=== PATIENT | male | born 1960 | race African-American/Black ===

== ENCOUNTER 2016-04-03 09:34 | Emergency (ER) | payer OTHER ==
--- NOTE | 2016-04-03 10:44 | ED ---
Skin Complaint - HPI Summary HPI Summary: Patient presents to ER with a CC of left lower leg skin lesion measuring 1.5cm over tibia. Patient has a history of diabetes and diabetic neuropathy. Lesion has been present for almost 2 weeks and began as a pus-filled abscess over tibia. Denied warmth, redness or other color changes. Abscess erupted several days ago and now lesion is flat, eroded with a white surface. Denies fever. Full ROM. Other "rash" over L anterior shoulder present intermittently for several months. topical steroids cause worsening flare of the rash. - History of Current Complaint Chief Complaint: EDGeneral Time Seen by Provider: 04/03/16 09:51 Stated Complaint: POSS SPIDER BITE Hx Obtained From: Patient Onset/Duration: Started Days Ago Skin Exposure Onset/Duration: Days Ago Timing: Constant Onset Severity: Moderate Current Severity: Moderate Pain Intensity: 5 Pain Scale Used: 0-10 Numeric Skin Location: Discrete - L anterior tibia measuring 1.5cm, Other: - right anterior shoulder-- confluent raised papules Aggravating Symptom(s): Nothing Alleviating Symptom(s): Nothing Associated Signs & Symptoms: Tenderness - erythema and warmth surrounding lesion over L anterior tibua Related History: Diabetes, PVD, Other: - no known trauma - Allergy/Home Medications Allergies/Adverse Reactions: Allergies Allergy/AdvReac Type Severity Reaction Status Date / Time Metformin and Related Allergy Intermediate GI Upset Verified 08/14/15 17:57 PMH/Surg Hx/FS Hx/Imm Hx Previously Healthy: Yes Endocrine/Hematology History: Reports: Hx Diabetes - TYPE 1 Cardiovascular History: Reports: Hx Coronary Artery Disease - CARDIAC STENTS X 3 , PLACED IN 2012, Hx Hypertension, Hx Peripheral Vascular Disease Denies: Hx Pacemaker/ICD Respiratory History: Reports: Hx Asthma GI History: Reports: Hx Irritable Bowel History: Reports: Hx Kidney Stones - A CHILD Denies: Hx Renal Disease Musculoskeletal History: Reports: Other Musculoskeletal History - LEFT SHOULDER SUPERIOR GLENOID LABRUM LESIONS Sensory History: Reports: Hx Cataracts - BILAT CATARACT EXTRACTION 2011, Hx Contacts or Glasses - GLASSES, Hx Glaucoma Denies: Hx Hearing Aid Opthamlomology History: Reports: Hx Cataracts - BILAT CATARACT EXTRACTION 2011, Hx Contacts or Glasses - GLASSES, Hx Glaucoma Neurological History: Reports: 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 2012 BILATERAL CATARACT EXTRACTION & GLAUCOMA- [facility] Hx Anesthesia Reactions: No Infectious Disease History: No Infectious Disease History: Denies: Traveled Outside the [place] in Last 30 Days - Social History Occupation: Employed Full-time Lives: With Family Alcohol Use: None Substance Use Type: Reports: None Smoking Status (MU): Heavy Every Day Tobacco Smoker Type: Cigarettes Amount Used/How Often: 1 PPD FOR 25 YRS Length of Time of Smoking/Using Tobacco: 25 YRS Have You Smoked in the Last Year: Yes Review of Systems Constitutional: Negative Eyes: Negative Cardiovascular: Negative Respiratory: Negative Musculoskeletal: Negative Positive: Other - small confluence of raised papules measuring 4X4 cm over L anterior shoulder; 1.5cm flat eroded lesion over anterior tibia Neurological: Negative Psychological: Normal All Other Systems Reviewed And Are Negative: Yes Physical Exam Triage Information Reviewed: Yes Vital Signs On Initial Exam: Initial Vitals Temp Pulse Resp BP Pulse Ox 98.1 F 70 16 172/93 97 04/03/16 09:36 04/03/16 09:36 04/03/16 09:36 04/03/16 09:36 04/03/16 09:36 Completion Of Physical Exam Limited Due To: Dementia Appearance: Positive: Well-Appearing, No Pain Distress Skin: Positive: Warm, Other - Dermopathy over lower extremities bilaterally covering the anterior tibia. small confluence of raised papules measuring 4X4 cm over L anterior shoulder; 1.5cm flat eroded lesion over anterior tibia Eyes: Positive: Normal, EOMI, ELENI ENT: Positive: Normal ENT inspection Neck: Positive: Supple, Nontender, No Lymphadenopathy Respiratory/Lung Sounds: Positive: Clear to Auscultation, Decreased Breath Sounds Cardiovascular: Positive: Normal Musculoskeletal: Positive: Normal Neurological: Positive: Normal, Sensory/Motor Intact Psychiatric: Positive: Normal Diagnostics - Vital Signs Vital Signs Temp Pulse Resp BP Pulse Ox 04/03/16 09:36 98.1 F 70 16 172/93 97 - Laboratory Lab Statement: Any lab studies that have been ordered have been reviewed, and results considered in the medical decision making process. Course/Dx - Course Course Of Treatment: small confluence of raised papules measuring 4X4 over L anterior shoulder resembling fungal infection. Unable to confirm. No open wound to culture. Will encourage selsun blue shampoo over area and clotrimazole cream. 1.5cm lesion over L anterior tibia with warmth, erythema and pain 2cm surrounding lesion. No fever. MRSA cx sent. wound cx sent and will await results. MRSA negative known. Rx for Keflex 4 times daily for 14 days d/t diabetic ulcer and cellulitic components. Assessment/Plan: Follow up with Designer if symptoms persist. - Differential Diagnoses - Skin Complaint Differential Diagnoses: Cellulitis, Contact Dermatitis, Drug Rash, Impetigo - Diagnoses Provider Diagnoses: Cellulitis and abscess of leg, Diabetic ulcer of left lower leg Discharge - Discharge Plan Condition: Stable Disposition: HOME Prescriptions: Clotrimazole 1% CREAM* [Clotrimazole 1%*] 1 applic TOPICAL BID #1 tube Patient Education Materials: Abscess (ED), Cellulitis (ED) Referrals: Radha Ambrose MD [Primary Care Provider] - Additional Instructions: Shoulder rash: Selsun jermaine shampoo over area. Leave on for at least 5 minutes, then rinse. Try this over the wound daily. Apply clotrimazole 1% daily to wound over shoulder. Follow up with roundsman if improvement or worsening rash over the area is seen. Leg wound: Keflex send to pharmacy. 500mg 4 times daily Images - Images Full Body (No Head): 1 - 1.5cm flat eroded lesion over anterior tibia 2 - small confluence of raised papules measuring 4X4 cm over L anterior shoulder
[2016-04-03] MEDS ORDERED: Cephalexin CAP* 500 MG PO ONE (11:41)
[2016-04-03 13:00] VITALS: BP 134/78
== END 2016-04-03 12:51 | disposition home or self-care (01) ==
LOC: ED 09:34
DX: L03.116 Cellulitis of left lower limb (principal); R21 Rash and other nonspecific skin eruption; F17.210 Nicotine dependence, cigarettes, uncomplicated; E11.622 Type 2 diabetes mellitus with other skin ulcer
CPT/HCPCS: 87070; 87205; 87640; 87641; 99282; A9270-GY

== ENCOUNTER 2017-08-02 12:58 | Emergency (ER) | payer OTHER ==
[2017-08-02 13:49] LABS: ABS Basophils 0.1 10^3/ul (0-0.2); ABS Eosinophils 0.1 10^3/ul (0-0.6); ABS Lymphocytes 1.8 10^3/ul (1.0-4.8); ABS Monocytes 0.2 10^3/ul (0-0.8); ABS Neutrophils 2.6 10^3/ul (1.5-7.7); ABS Nucleated RBC 0 10^3/ul; Eosinophil % 1.7 % (0-6); Hematocrit 46 % (42-52); Hemoglobin 15.2 g/dl (14.0-18.0); Lymphocyte % 37.5 % (25-47); Mean Corpuscular HGB Conc 33 g/dl (31-36); Mean Corpuscular Hemoglobin 29 pg (27-31); Mean Corpuscular Volume 88 fL (80-94); Mean Platelet Volume 9.4 um3 (7.4-10.4); Nucleated Red Blood Cells % 0.2; Platelet Count 165 10^3/ul (150-450); Red Cell Distribution Width 14 % (10.5-15); White Blood Count 4.7 10^3/ul (3.5-10.8)
--- OUTSIDE RECORDS SUMMARY | 2017-08-02 14:09 | XMS REPORT ---
:1960 External Reference #:[id number] Author Organization [facility] Address [address] [address] Phone [phone] Care Team Providers Name Role Phone Solo Zavala MD Primary Care Physician Unavailable Payers Type Date Identification Numbers Payment Provider Subscriber Commercial Effective: Policy Number: Juwan Astudillo 2014 [id number] Group Number: [id number] [address] PayID: [id number] [place] [address] Problems Date Description Provider Status Onset: 12/31/2012 Type 2 diabetes mellitus Solo Zavala M.D. Active Onset: 12/31/2012 Essential hypertension Solo Zavala M.D. Active Onset: 12/31/2012 Mixed hyperlipidemia Solo Zavala M.D. Active Onset: 01/26/2013 Carpal tunnel syndrome Solo Zavala M.D. Active Onset: 01/26/2013 Degenerative joint disease Solo Zavala M.D. Active involving multiple joints Onset: 12/23/2013 Coronary arteriosclerosis Talha Montes De Oca M.D., Active FAC, FASNC Onset: 10/05/2014 Destruction of lesion of shoulder Ty Arellano M.D. Active joint Onset: 10/05/2014 Brachial neuritis Ty Arellano M.D. Active Onset: 12/08/2014 Superior glenoid labrum lesion of Evelyn Morgan, CHRISTOPHER-C Active left shoulder, subs encntr Onset: 07/28/2015 Disorder of shoulder Ty Arellano M.D. Active Onset: 03/21/2017 Hyperlipidemia Solo Zavala M.D. Active Onset: 03/21/2017 Type 2 diabetes mellitus with Solo Zavala M.D. Active diabetic neuropathy, unsp Onset: 03/21/2017 Pressure ulcer of left buttock, Solo Zavala M.D. Active unstageable Onset: 03/27/2017 Syncope and collapse Collette Torres MD Active Onset: 03/27/2017 Diabetic peripheral neuropathy Collette Torres MD Active associated with type 2 diabetes mellitus Onset: 05/13/2017 Tobacco user Solo Zavala M.D. Active Onset: 05/13/2017 Psychogenic impotence Solo Zavala M.D. Active Family History Date Family Member(s) Problem(s) Comments General No Current Problems Social History Type Date Description Comments Marital Status Lives With Occupation Currently Working ETOH Use Denies alcohol use Smoking Patient is a current smoker, smokes some days Recreational Drug Use Sporadically uses Marijuana Smoking current smoker 1 PPD Daily Caffeine Consumes on average 2 cups of regular coffee per day Exercise Type/Frequency Does not exercise Allergies, Adverse Reactions, Alerts Date Description Reaction Status Severity Comments 02/16/2013 Metformin not tolerated active 12/31/2012 NKDA inactive Medications Medication Date Status Form Strength Qnty SIG Indications Ordering Provider Baslyssa 07/08/ Active Solution 100Unit/M 30ml 90 units at E11.40 Solo Levy 2017 Pen-Inject L bedtime Nina Zavala Glipizide 04/26/ Active Tablets 5mg 30tab take 1 tablet Solo 2017 s after Sally breakfast , M.DKenn daily Pen Sunol 07/27/ Active Misc 31G X 8 50uni use with Cheyenne 2013 mm ts lantus subq Nails, everyday M.D. Lisinopril 03/02/ Active Tablets 20mg 90tab 1 by mouth I10 Familia 2012 s every day Shukri Cruz M.D.,FACP Wrist Brace 03/02/ Active Misc 2unit left and 354.0 Leo Sahra Ultra-Lite 2012 s right; use at [place], [facility] night and prn M.D. Tunnel/One dx code: Size 354.0 Carpal Tunnel Syndrome Blood Pressure 03/02/ Active Kit (+) I10 Leo EKenn Kit Digital 2012 hypertension- [place], for home bp M.D. monitoring dx code: 401.9 Hypertension Unspec Lyrica / Active Capsules 150mg 60cap 1 by mouth Solo 0000 s twice a day Nina Zavala Victoza / Active Solution 18mg/3ML inject 1.2 mg Unknown 0000 Pen-Inject under the skin daily Aspirin / Active Tablets DR 81mg 1 by mouth Unknown 0000 every day Metoprolol / Active Tablets ER 25mg 30tab 1 by mouth Sublimity Succinate ER 0000 24HR s every day Nina Zavala Pravastatin / Active Tablets 20mg 30tab 1 tablet by Sublimity Sodium 0000 s mouth once Pachikara daily at , M.D. bedtime Santyl / Active Ointment 250Unit/G apply daily Unknown 0000 M Januvia 03/21/ Hx Tablets 100mg 30tab 1 by mouth E11.40 Solo 2018 - s every day Pachikara 04/26/ , Nina 2018 Voltaren 01/19/ Hx Gel 1% 1tube apply to the S43.432D Ty 2014 - shoulder as Eileen, 05/14/ needed for M.D. 2017 pain, maximum 3 times a day Hydrocodone-Ac 11/16/ Hx Tablets 5-325mg 60tab one to two Ty etaminophen 2014 - s tabs by mouth Eileen, 01/09/ three a day M.DKenn 2014 as needed Aspir-81 03/24/ Hx Tablets DR 81mg 1 by mouth Talha 2015 - every day Spencer 01/09/ Tavon 2015 Nina, FACC, FASNC Pen Sunol 04/02/ Hx Misc 31G X 8 50uni use with Leo Bocanegra 31GX5/16" 2013 - mm ts lantus subq Nelsy, 07/27/ qday M.D. 2013 Lantus 01/29/ Hx Sopn 100Unit/M 15uni 35 units in 250.00 Leo Clifford 2012 - L ts am and 35 Nelsy, 03/21/ units in pm M.D. 2017 Januvia 01/26/ Hx Tablets 100mg 30tab 1 po qd 250.00 Solo 2012 - s Pachikara 03/02/ , MDonita 2013 Losartan 01/26/ Hx Tablets 100-12.5m 30tab once daily 401.9 Sublimity Potassium/Hydr 2012 - g s Sally ochlorothiazid , Nina e 2012 Meloxicam 01/26/ Hx Tablets 15mg 30tab once daily 715.00 Solo 2012 - with food Pachikara , MDonita 2012 Prinivil 12/31/ Hx Tablets 10mg 30tab qd 401.9 Sublimity 2012 Pachikara , Nina 2012 Prinivil 12/31/ Hx Tablets 20mg 30tab qd 401.9 Solo 2012 - Pachikara , Nina 2012 Toprol XL 12/31/ Hx Tablets ER 25mg 30tab 1 tab po 401.9 Leo Bocanegra 2012 - 24HR s daily Nelsy, Nina 2016 Lisinopril / Hx Tablets 20mg 90tab 1 po qd Unknown 0000 - s 2012 Crestor / Hx Tablets 20mg 30tab 1 po qd Catie - s Ed, MKennDKenn 2012 Metoprolol / Hx Tablets 25mg 180ta 1 po qd Unknown Tartrate 0000 - bs 2012 Lantus / Hx Solution 100Unit/M 6Vial 50 units hs Solo 0000 - L s Sally , MDonita 2012 Pravastatin 00/ Hx Tablets 20mg 1 tab po Scott-H Sodium 0000 - daily ektor, 12/09/ Denise Carrillo 2017 PA Tradjenta / Hx Tablets 5mg 1 tab po Zamora, 0000 - daily Yola, 12/09/ SYSTEMS TRAINER-BC 2017 Pravachol / Hx Tablets 20mg 1 tablet by Unknown 0000 - mouth every 03/21/ night at 2018 bedtime Cephalexin / Hx Capsules 500mg Unknown - 2017 Clotrimazole / Hx Cream 1% Unknown - 2017 Basaglar / Hx Solution 100Unit/M 9ml 70 units Solo Kwikpen 0000 - Pen-Inject L daily Sally Nina 2017 Medications Administered in Office Medication Date Status Form Strength Qnty SIG Indications Ordering Provider Depomedrol Administered Injection Iglesia F 40MG 017 MD Kole Inj, Administered Injection Talha Spencer Regadenoson, 014 Tavon, 0.1 MG Nina, FACLindsey, FASNC Technetium TC Administered Injection Talha Palmer 99M 014 Tavon TetrofosminNina, FACC, Per Unit Dose FASNC Up To 40 Millicuries Technetium TC Administered Injection Ica Nuclear 99M 014 Schedule Tetrofosmin, Per Unit Dose Up To 40 Millicuries Vital Signs Date Vital Result Comment 07/08/2017 Height 70 inches 5'10" Weight 280.00 lb Heart Rate 75 /min BP Systolic 150 mmHg BP Diastolic 100 mmHg BP Systolic Sitting 150 mmHg BP Diastolic Sitting 100 mmHg O2 % BldC Oximetry 96 % BMI (Body Mass Index) 40.2 kg/m2 05/13/2017 Height 70.5 inches 5'10.50" Weight 270.12 lb With Boots And Coat Heart Rate 71 /min BP Systolic 130 mmHg BP Diastolic 80 mmHg Body Temperature 98.6 F O2 % BldC Oximetry 97 % BMI (Body Mass Index) 38.2 kg/m2 03/27/2017 Height 70.5 inches 5'10.50" Weight 260.00 lb Heart Rate 88 /min BP Systolic Sitting 126 mmHg BP Diastolic Sitting 80 mmHg Respiratory Rate 16 /min BMI (Body Mass Index) 36.8 kg/m2 03/21/2017 Height 70.5 inches 5'10.50" Weight 262.50 lb Heart Rate 104 /min BP Systolic 128 mmHg BP Diastolic 78 mmHg Body Temperature 97.0 F O2 % BldC Oximetry 92 % BMI (Body Mass Index) 37.1 kg/m2 12/10/2016 Height 70.75 inches 5'10.75" Weight 267.00 lb Heart Rate 66 /min Body Temperature 97.4 F BMI (Body Mass Index) 37.5 kg/m2 05/15/2016 Height 70.5 inches 5'10.50" Weight 269.00 lb Heart Rate 74 /min BP Systolic Sitting 128 mmHg right arm, large cuff BP Diastolic Sitting 90 mmHg right arm, large cuff BP Systolic Standing 124 mmHg right arm, large cuff BP Diastolic Standing 90 mmHg right arm, large cuff BMI (Body Mass Index) 38.0 kg/m2 Ejection Fraction 55-60% 11/25/15 07/28/2015 Height 70.5 inches 5'10.50" Weight 235.00 lb Heart Rate 76 /min BP Systolic Sitting 134 mmHg BP Diastolic Sitting 88 mmHg Respiratory Rate 16 /min Pain Level 9 BMI (Body Mass Index) 33.2 kg/m2 01/19/2015 Height 70.5 inches 5'10.50" Weight 235.00 lb BMI (Body Mass Index) 33.2 kg/m2 12/08/2014 Height 70.5 inches 5'10.50" Weight 235.00 lb Pain Level 1 increases with twisting or lifting BMI (Body Mass Index) 33.2 kg/m2 11/16/2014 Height 70.5 inches 5'10.50" Weight 237.00 lb Body Temperature 98.3 F Pain Level 3 BMI (Body Mass Index) 33.5 kg/m2 10/13/2014 Height 70.5 inches 5'10.50" Weight 273.00 lb w/o shoes Heart Rate 72 /min reg BP Systolic Sitting 138 mmHg Rue, lg cuff BP Diastolic Sitting 104 mmHg Rue, lg cuff BP Systolic Standing 140 mmHg Rue BP Diastolic Standing 100 mmHg Rue Respiratory Rate 18 /min BMI (Body Mass Index) 38.6 kg/m2 Ejection Fraction 50-55% as of 01/06/14 echo 10/05/2014 Height 70.5 inches 5'10.50" Weight 275.00 lb Heart Rate 72 /min BP Systolic Sitting 141 mmHg BP Diastolic Sitting 93 mmHg Pain Level 5 ranges up to 10 BMI (Body Mass Index) 38.9 kg/m2 03/24/2014 Height 70.5 inches 5'10.50" Weight 254.00 lb with shoes Heart Rate 66 /min regular BP Systolic Sitting 120 mmHg right arm large cuff BP Diastolic Sitting 70 mmHg right arm large cuff BP Systolic Standing 122 mmHg right arm large cuff BP Diastolic Standing 68 mmHg right arm large cuff Respiratory Rate 20 /min BMI (Body Mass Index) 35.9 kg/m2 12/23/2013 Height 70.5 inches 5'10.50" Weight 254.25 lb Heart Rate 86 /min BP Systolic 118 mmHg large, right BP Diastolic 87 mmHg large, right BP Systolic Sitting 138 mmHg large, left BP Diastolic Sitting 90 mmHg large, left BP Systolic Standing 112 mmHg large, right BP Diastolic Standing 80 mmHg large, right BMI (Body Mass Index) 36.0 kg/m2 03/02/2013 Height 70.5 inches 5'10.50" Weight 250.00 lb Heart Rate 72 /min BP Systolic Sitting 138 mmHg BP Diastolic Sitting 90 mmHg BMI (Body Mass Index) 35.4 kg/m2 01/26/2013 Height 70.5 inches 5'10.50" Weight 243.25 lb Heart Rate 80 /min BP Systolic Sitting 168 mmHg BP Diastolic Sitting 110 mmHg BMI (Body Mass Index) 34.4 kg/m2 01/09/2013 Height 70 inches 5'10" Weight 242.00 lb Heart Rate 79 /min BP Systolic Sitting 130 mmHg BP Diastolic Sitting 93 mmHg Body Temperature 96.5 F O2 % BldC Oximetry 96 % BMI (Body Mass Index) 34.7 kg/m2 12/31/2012 Height 70 inches 5'10" Weight 237.00 lb Heart Rate 65 /min BP Systolic Sitting 153 mmHg BP Diastolic Sitting 100 mmHg BMI (Body Mass Index) 34.0 kg/m2 Results Test Date Test Result H/L Range Note Comp Metabolic Panel 03/12/2017 Sodium 143 mmol/L 133-145 Potassium 4.1 mmol/L 3.5-5.0 Chloride 104 mmol/L 101-111 Co2 Carbon Dioxide 32 mmol/L 22-32 Anion Gap 7 mmol/L 2-11 Glucose 122 mg/dL High 70-100 Blood Urea Nitrogen 12 mg/dL 6-24 Creatinine 0.94 mg/dL 0.67-1.17 BUN/Creatinine Ratio 12.8 8-20 Calcium 9.7 mg/dL 8.6-10.3 Total Protein 6.7 g/dL 6.4-8.9 Albumin 4.0 g/dL 3.2-5.2 Globulin 2.7 g/dL 2-4 Albumin/Globulin Ratio 1.5 1-3 Total Bilirubin 0.90 mg/dL 0.2-1.0 Alkaline Phosphatase 79 U/L 34-104 Alt 16 U/L 7-52 Ast 21 U/L 13-39 Egfr Non- 83.6 >60 Egfr 107.6 >60 1 Laboratory test finding 03/12/2017 Prealbumin 25 mg/dL 18-38 Hemoglobin A1c (Glyco HGB) 11.1 % High 4.0-5.6 2 CBC Auto Diff 03/12/2017 White Blood Count 4.9 10^3/uL 3.5-10.8 Red Blood Count 4.99 10^6/uL 4.0-5.4 Hemoglobin 14.6 g/dL 14.0-18.0 Hematocrit 44 % 42-52 Mean Corpuscular Volume 88 fL 80-94 Mean Corpuscular Hemoglobin 29 pg 27-31 Mean Corpuscular HGB Conc 33 g/dL 31-36 Red Cell Distribution Width 14 % 10.5-15 Platelet Count 167 10^3/uL 150-450 Mean Platelet Volume 10 um3 7.4-10.4 Abs Neutrophils 2.7 10^3/uL 1.5-7.7 Abs Lymphocytes 1.8 10^3/uL 1.0-4.8 Abs Monocytes 0.3 10^3/uL 0-0.8 Abs Eosinophils 0.1 10^3/uL 0-0.6 Abs Basophils 0 10^3/uL 0-0.2 Abs Nucleated RBC 0.01 10^3/uL Granulocyte % 55.1 % 38-83 Lymphocyte % 37.5 % 25-47 Monocyte % 5.2 % 1-9 Eosinophil % 1.7 % 0-6 Basophil % 0.5 % 0-2 Nucleated Red Blood Cells % 0.2 Laboratory test finding 03/12/2017 Erythrocyte Sed Rate 35 mm/Hr High 0- 20 Laboratory test finding 11/04/2014 Point of Care Glucose 161 mg/dL High 74 -106 3 Laboratory test finding 11/04/2014 Point of Care Glucose 211 mg/dL High 74 -106 4 Laboratory test finding 11/04/2014 Point of Care Glucose 258 mg/dL High 74 -106 5 Laboratory test finding 11/04/2014 Point of Care Glucose 349 mg/dL High 74 -106 6 Laboratory test finding 11/04/2014 Point of Care Glucose 402 mg/dL High 74 -106 7 Laboratory test finding 11/04/2014 Glucose 433 mg/dL High 70-100 Point of Care Glucose 438 mg/dL High 74-106 8 Laboratory test 03/02/2013 Hemoglobin A1c 9.6 High 5-7 finding Laboratory test 03/02/2013 Hepatitis C Antibody Nonreactive Nonreactive 9 finding Urine Microalbumin 03/02/2013 Ur Microalbumin 10.0 mg/L 10 Random (mg/L) Urine Creatinine 94.6 mg/dL Urine Microalbumin/Creatinine 10.6 Less Than 31 Comp Metabolic Panel 03/02/2013 Sodium 139 mmol/L 133-145 Potassium 3.8 mmol/L 3.5-5.0 Chloride 100 mmol/L Low 101-111 Co2 Carbon Dioxide 29.0 mmol/L 22-32 Anion Gap 10.0 mmol/L 2-11 Glucose 169 mg/dL High 70-100 Blood Urea Nitrogen 15 mg/dL 6-24 Creatinine 0.80 mg/dL 0.50-1.40 BUN/Creatinine Ratio 18.8 8-20 Calcium 9.7 mg/dL 8.1-9.9 Total Protein 6.2 g/dL 6.2-8.1 Albumin 3.8 g/dL 3.6-5.4 Globulin 2.4 g/dL 2-4 Albumin/Globulin Ratio 1.6 1-3 Total Bilirubin 1.1 mg/dL 0.4-1.5 Alkaline Phosphatase 70 U/L 30-110 Alt 15 U/L 14-54 Ast 14 U/L 12-42 Egfr Non- 102.3 >60 Egfr 131.6 >60 11 Lipid Profile (Trig/Chol/HDL) 03/02/2013 Triglycerides 298 mg/dL High 40- 200 Cholesterol 238 mg/dL High Less than 200 HDL Cholesterol 43 mg/dL 40-60 12 Cholesterol/HDL Ratio 5.5 Average High 1-4.44 LDL Cholesterol 135.4 High Less Than 100 13 Laboratory test finding 12/31/2012 Hemoglobin A1c 12.2 High 5-7 1 Because ethnic data is not always readily available, this report includes an eGFR for both -Americans and non- Americans. The National Kidney Disease Education Program (NKDEP) does not endorse the use of the MDRD equation for patients that are not between the ages of 18 and 70, are , have extremes of body size, muscle mass, or nutritional status, or are non- or non-. According to the National Kidney Foundation, irrespective of diagnosis, the stage of the disease is based on the level of kidney function: Stage Description GFR(mL/min/1.73 m(2)) 1 Kidney damage with normal or decreased GFR 90 2 Kidney damage with mild decrease in GFR 60-89 3 Moderate decrease in GFR 30-59 4 Severe decrease in GFR 15-29 5 Kidney failure <15 (or dialysis) 2 Therapeutic target for the treatment of diabetes mellitus patients is <7% HBA1C, and in selective patients <6.0%. Please refer to [place] [employer] diabetic care guidelines for further information. 3 It Security Administrator: [id number] CARLOS ALBERTO RICO 4 It Security Administrator: [id number] MARIO TIFFANI 5 It Security Administrator: [id number] MARIO TIFFANI 6 It Security Administrator: [id number] MARIO TIFFANI 7 It Security Administrator: [id number] Ernesto Duncan 8 It Security Administrator: [id number] [facility] [place] 9 FASTING 10 Microalbuminuria in a random sample is defined as: Microalbumin/Creatinine ratio of 30-299 ug/mg. 11 Because ethnic data is not always readily available, this report includes an eGFR for both -Americans and non- Americans. The National Kidney Disease Education Program (NKDEP) does not endorse the use of the MDRD equation for patients that are not between the ages of 18 and 70, are , have extremes of body size, muscle mass, or nutritional status, or are non- or non-. According to the National Kidney Foundation, irrespective of diagnosis, the stage of the disease is based on the level of kidney function: Stage Description GFR(mL/min/1.73 m(2)) 1 Kidney damage with normal or decreased GFR 90 2 Kidney damage with mild decrease in GFR 60-89 3 Moderate decrease in GFR 30-59 4 Severe decrease in GFR 15-29 5 Kidney failure <15 (or dialysis) 12 HDL Interpretation: Undesirable: High Risk: Less than 40 mg/dL Desirable: Low Risk: Greater than 60 mg/dL 13 LDL Interpretation: Low Risk Optimal Level: LDL Less than 100 mg/dL Near or Above Optimal: LDL 100-129 mg/dL Borderline High Risk: LDL 130-159 mg/dL High Risk: LDL 160-189 mg/dL Very High Risk: LDL Greater than 189 mg/dL Procedures Date CPT Code Description Status Comment 03/28/2017 23565 Removal Devitalization Tissue Wound Completed Less Than Equal 20 Square CM 03/21/2017 10689 Removal Devitalization Tissue Wound Completed Less Than Equal 20 Square CM 03/12/2017 93218 Removal Devitalization Tissue Wound Completed Less Than Equal 20 Square CM 12/10/2016 28439 Inject/Drain Joint/Bursa Major Completed 05/15/2016 95064 EKG Tracing & Interpretation Completed 03/11/2016 Diabetic Retinal Eye Exam Completed 11/25/2015 76108 ECHO Transthoracic, Real-Time 2D With Completed Doppler And Color Flow 11/04/2014 33919 Arthroscopy,Shoulder Decompression Of Completed Subacromial Space W/Acromio 11/04/2014 08800 Arthroscopy Shoulder Debridement Completed Extensive 10/13/2014 13739 EKG Tracing & Interpretation Completed 02/22/2014 24525 Stress Test Completed 02/22/2014 89607 Myocardial Perfusion Imaging Completed Tomographic (Spect) Multiple Studies 01/06/2014 74722 ECHO Transthoracic, Real-Time 2D With Completed Doppler And Color Flow 12/23/2013 17665 EKG Tracing & Interpretation Completed 02/19/2013 07857 Nerve Conduction 09- Studies Completed 02/19/2013 79836 Needle Electromyography Complete, Five Completed Or More Muscles Studied 11/10/2011 Colonoscopy Completed Polyps present Encounters Type Date Location Provider CPT E/M Dx Office Visit 05/13/2017 11:00a [facility] Solo Zavala, 62170 E11.40 Medicine - [place] [facility].Shukri I10 E78.5 F17.210 F52.21 Office Visit 04/18/2017 9:15a [facility] Leon, 59956 L89.320 [facility] E11.40 I10 E78.5 Z79.4 Office Visit 03/27/2017 1:00p [facility] [address] R55 E11.42 Office Visit 03/21/2017 3:20p [facility] Solo Zavala, 56316 E11.40 [facility] [facility] E78.5 L89.320 Office Visit 12/10/2016 1:15p [facility], 65635 M75.52 Yolanda ARCEO M75.42 Office Visit 10/16/2016 8:45a [facility] Cruz Leon, 04609 E11.622 [facility] I87.312 F17.210 I10 I25.10 E11.40 K31.84 Office Visit 10/09/2016 8:00a [facility] Cruz Leon 79344 E11.622 At [facility] Nina I87.312 F17.210 I10 I25.10 E11.40 K31.84 Office Visit 05/15/2016 1:15p [facility] Talha Montes De Oca, 33011 I25.10 Helga Wood, FAC, FASKY F17.210 Office Visit 07/28/2015 10:00a [facility] Ty Arellano, 30619 M75.41 C.M.A. [place]. Office Visit 10/13/2014 11:30a [facility] Talha Montes De Oca, 91130 414.01 Helga Wood, [facility] Office Visit 10/05/2014 10:00a [facility] Arellano, 22196 840.7 C.M.A. MDonita 723.4 726.2 Office Visit 03/24/2014 11:00a [facility] Talha Montes De Oca, 44355 414.01 Helga Wood, FAC, [facility] Office Visit 12/23/2013 12:00p [facility] Spencer Montes De Oca, 35015 414.01 MDonita, [facility] Office Visit 03/02/2013 11:00a [facility] Internal Medicine - Leo Whittington, 87685 250.60 Krystyna Wood 354.0 401.9 V73.89 Office Visit 01/26/2013 11:20a [facility] Internal Solo Zavala, 14835 250.00 Medicine - Krystyna Wood 401.9 354.0 715.00 Office Visit 01/09/2013 1:20p [facility] Medicine Catie Ward M.D. 25581 461.8 - Krystyna Office Visit 12/31/2012 11:00a [facility] Medicine Solo Zavala, 09792 250.00 - Krystyna Wood 401.9 272.2 278.00 Plan of Care Future Appointment(s):08/19/2017 11:20 am - Solo Zavala M.D. at [facility] Internal Medicine - [address]/ - Solo Zavala M.D.Z00.01 Encounter for general adult medical exam w abnormal findingsComments:You should have yearly Flu shot and T dap every 10 years. Exercise 30mts/day 5 times a week, Self testicular exam a month during shower to feel for lumps or bumpsYearly eye exam.E11.40 Type 2 diabetes mellitus with diabetic neuropathy, unspNew Medication:Basaglar Kwikpen 100 Unit/MLComments:You are not meeting goal for blood sugar control. Increase basaglar to 90 ~B_units hs Call back yourblood suar readings of 1 week before breakfast and 1 hour after dinner~b_Referral: [facility], NutritionistFollow up:6 weeks, 20 minGoals: Goal Hemoglobin A1c is less than 7.0%. Goal Blood pressure is less than 140/ 90. Goal LDL (bad cholesterol) is less than 70.F17.210 Nicotine dependence, cigarettes, uncomplicatedComments:buttermaker continuous churn adverse effects of smoking are blockage of blood vessels ultimately can lead to amputations. When it affects heart blood vessels it can cause heart attack even a an early age. It can cause progressive lung damage and cancer of lung. Overall it increases the risk of all cancers .It increases risk of many other diseases like osteoporosis as you get older.Different options to quit smoking areChantix, welbutrin which is an antidepressant, nicotine patch or gums . Think about it and let me know when you decide to quit.
[2017-08-02 14:14] LABS: EGFR Non-African American 75.8 (>60)
[2017-08-02] MEDS ORDERED: Iodixanol* (CONTRAST) 320 MG/ML 100 ML SDV IV ONE (14:57)
--- NOTE | 2017-08-02 16:48 | RAD ---
INDICATION: RIGHT lower quadrant pain that goes to the RIGHT flank. COMPARISON: No relevant prior exams available on the [facility]. TECHNIQUE: Multidetector CT images were obtained from the lung bases to the ischial tuberosities with 141 mL Visipaque 320 IV and oral contrast. Multiplanar reformation. REPORT: Unremarkable visualized inferior thorax. Significantly decreased density of the liver compared with the spleen consistent with fatty infiltration. No focal hepatic lesions evident. No CT abnormality of the gallbladder, pancreas, spleen. Negative for CT abnormality of the upper GI, small bowel, infra cecal appendix, or colon. Negative for ascites, free air, hernias. Normal adrenal glands. Unremarkable kidneys with symmetric nephrograms and pyelograms. Unremarkable nondilated ureters and distended urinary bladder. Symmetric seminal vesicles. Negative for thoracic lymphadenopathy. Normal diameter abdominal aorta and iliac arteries with predominant mild atherosclerotic plaque. Physiologic distention of the IVC. Small bone island at the LEFT iliac bone. Negative for suspicious focal osseous lesions. Degenerative spondylosis and facet joint osteoarthritis most prominent at L5-S1. IMPRESSION: 1. Fatty infiltration of the liver. 2. Normal appendix documented. No acute pathologic process of the alimentary tract evident. 3. Negative for obstructive uropathy.
[2017-08-02] MEDS ORDERED: Ketorolac INJ* 30 MG/ML 1 ML VIAL IV PUSH ONE (16:52)
[2017-08-02] MEDS ORDERED: Magnesium Oxide TAB* 400 MG PO ONE (17:16)
[2017-08-02 17:59] VITALS: BP 148/106
--- NOTE | 2017-08-02 20:59 | ED ---
Bonifacio Cavazos Rebecca, scribed for Leo Landa MD on 08/02/17 at 1320 . Abdominal Pain/Male - HPI Summary HPI Summary: Pt is a 57 y/o M who presents to ED c/o abdominal pain. Sx have been present for about 4 weeks. Pain is in the RLQ with radiation to the right flank, currently moderate, ranked 7/10. Pain characterized as burning, described as "road rash" that is "extending and growing." Sx aggravated and alleviated by nothing. Additionally c/o previously having diarrhea and now constipation. Denies N/V. - History of Current Complaint Chief Complaint: EDAbdPain Stated Complaint: ABD PAIN Time Seen by Provider: 08/02/17 13:16 Hx Obtained From: Patient Onset/Duration: Lasting Weeks - 4 weeks, Still Present Severity Currently: Moderate Pain Intensity: 7 Pain Scale Used: 0-10 Numeric Location: Discrete At: RLQ Radiates: Yes Radiates to: Flank - Right Character: Burning Aggravating Factor(s): Nothing Alleviating Factor(s): Nothing Associated Signs And Symptoms: Positive: Constipation, Diarrhea - resolved - Allergies/Home Medications Allergies/Adverse Reactions: Allergies Allergy/AdvReac Type Severity Reaction Status Date / Time metformin Allergy GI Upset Verified 08/02/17 14:58 Home Medications: Home Medications Aspirin EC TAB* [Ecotrin EC Low Dose 81 MG*] 81 mg PO DAILY 08/02/17 [History Confirmed 08/02/17] Insulin Glargine,Hum.rec.anlog [Basaglar Kwikpen] 70 unit SUBCUT DAILY 08/02/17 [History Confirmed 08/02/17] Liraglutide [Victoza 3-Benito] 0.6 mg SUBCUT DAILY 08/02/17 [History Confirmed ] Pravastatin (NF) [Pravachol (NF)] 20 mg PO DAILY 08/02/17 [History Confirmed ] PMH/Surg Hx/FS Hx/Imm Hx Endocrine/Hematology History: Reports: Hx Diabetes - TYPE 1 Cardiovascular History: Reports: Hx Coronary Artery Disease - CARDIAC STENTS X 3 , PLACED IN 2012, Hx Hypertension, Hx Peripheral Vascular Disease Denies: Hx Pacemaker/ICD Respiratory History: Reports: Hx Asthma GI History: Reports: Hx Irritable Bowel History: Reports: Hx Kidney Stones - A CHILD Denies: Hx Renal Disease Musculoskeletal History: Reports: Other Musculoskeletal History - LEFT SHOULDER SUPERIOR GLENOID LABRUM LESIONS Sensory History: Reports: Hx Cataracts - BILAT CATARACT EXTRACTION 2011, Hx Contacts or Glasses - GLASSES, Hx Glaucoma Denies: Hx Hearing Aid Opthamlomology History: Reports: Hx Cataracts - BILAT CATARACT EXTRACTION 2011, Hx Contacts or Glasses - GLASSES, Hx Glaucoma Neurological History: Reports: 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 2012 BILATERAL CATARACT EXTRACTION & GLAUCOMA- [facility] Hx Anesthesia Reactions: No Infectious Disease History: No Infectious Disease History: Denies: Traveled Outside the [place] in Last 30 Days - Family History Known Family History: Negative: Cardiac Disease, Diabetes - Social History Alcohol Use: None Substance Use Type: Reports: None Smoking Status (MU): Heavy Every Day Tobacco Smoker Type: Cigarettes Amount Used/How Often: 1 PPD FOR 25 YRS Length of Time of Smoking/Using Tobacco: 25 YRS Have You Smoked in the Last Year: Yes Review of Systems Negative: Fever Positive: Abdominal Pain - RLQ with the radiation to the R flank, Diarrhea - Resolved, Other - constipation. Negative: Vomiting, Nausea All Other Systems Reviewed And Are Negative: Yes Physical Exam - Summary Physical Exam Summary: VITAL SIGNS: Reviewed. GENERAL: Patient is a well-developed and nourished male who is lying comfortable in the stretcher. ~Patient is not in any acute respiratory distress. HEAD AND FACE: Normocephalic and atraumatic. EYES: PERRLA, EOMI x 2, No injected conjunctiva. EARS: Hearing grossly intact. Ear canals and tympanic membranes are WNL. MOUTH: Oropharynx within normal limits. NECK: Supple, trachea is midline, no adenopathy, no JVD. CHEST: Symmetric, no tenderness at palpation LUNGS: Clear to auscultation bilaterally. No wheezing or crackles. CVS: RRR, S1 and S2 present, no murmurs or gallops appreciated. ABDOMEN: Soft, tender in the RLQ. No signs of distention. Positive bowel sounds. No rebound no guarding, and no masses palpated. No abdominal bruit or pulsations. EXTREMITIES: FROM in all major joints, no edema, no cyanosis or clubbing. NEURO: Alert and oriented x 3. No acute neurological deficits. Speech is normal. SKIN: Dry and warm Triage Information Reviewed: Yes Vital Signs On Initial Exam: Initial Vitals Temp Pulse Resp BP Pulse Ox 98.4 F 95 16 130/94 94 08/02/17 13:01 08/02/17 13:01 08/02/17 13:01 08/02/17 13:01 08/02/17 13:01 Vital Signs Reviewed: Yes Diagnostics - Vital Signs Vital Signs Temp Pulse Resp BP Pulse Ox 08/02/17 13:01 98.4 F 95 16 130/94 94 - Laboratory Lab Results: Lab Results 08/02/17 08/02/17 08/02/17 Range/Units 13:29 13:29 13:29 WBC 4.7 (3.5-10.8) 10^3/ul RBC 5.20 (4.0-5.4) 10^6/ul Hgb 15.2 (14.0-18.0) g/dl Hct 46 (42-52) % MCV 88 (80-94) fL MCH 29 (27-31) pg MCHC 33 (31-36) g/dl RDW 14 (10.5-15) % Plt Count 165 (150-450) 10^3/ul MPV 9.4 (7.4-10.4) um3 Neut % (Auto) 54.4 (38-83) % Lymph % (Auto) 37.5 (25-47) % [place] % (Auto) 5.0 (0-7) % Eos % (Auto) 1.7 (0-6) % Baso % (Auto) 1.4 (0-2) % Absolute Neuts (auto) 2.6 (1.5-7.7) 10^3/ul Absolute Lymphs (auto) 1.8 (1.0-4.8) 10^3/ul Absolute Monos (auto) 0.2 (0-0.8) 10^3/ul Absolute Eos (auto) 0.1 (0-0.6) 10^3/ul Absolute Basos (auto) 0.1 (0-0.2) 10^3/ul Absolute Nucleated RBC 0 10^3/ul Nucleated RBC % 0.2 Sodium 139 (139-145) mmol/L Potassium 3.8 (3.5-5.0) mmol/L Chloride 104 (101-111) mmol/L Carbon Dioxide 28 (22-32) mmol/L Anion Gap 7 (2-11) mmol/L BUN 13 (6-24) mg/dL Creatinine 1.02 (0.67-1.17) mg/dL Est GFR ( Amer) 97.5 (>60) Est GFR (Non-Af Amer) 75.8 (>60) BUN/Creatinine Ratio 12.7 (8-20) Glucose 157 H (70-100) mg/dL Lactic Acid 0.9 (0.5-2.0) mmol/L Calcium 9.2 (8.6-10.3) mg/dL Magnesium 1.6 L (1.9-2.7) mg/dL Total Bilirubin 1.10 H (0.2-1.0) mg/dL AST 21 (13-39) U/L ALT 19 (7-52) U/L Alkaline Phosphatase 72 (34-104) U/L C-Reactive Protein 9.13 H (< 5.00) mg/L B-Natriuretic Peptide ( - 100) pg/mL Total Protein 7.2 (6.4-8.9) g/dL Albumin 3.9 (3.2-5.2) g/dL Globulin 3.3 (2-4) g/dL Albumin/Globulin Ratio 1.2 (1-3) Lipase 32 (11.0-82.0) U/L 05/25/18 Range/Units 13:29 WBC (3.5-10.8) 10^3/ul RBC (4.0-5.4) 10^6/ul Hgb (14.0-18.0) g/dl Hct (42-52) % MCV (80-94) fL MCH (27-31) pg MCHC (31-36) g/dl RDW (10.5-15) % Plt Count (150-450) 10^3/ul MPV (7.4-10.4) um3 Neut % (Auto) (38-83) % Lymph % (Auto) (25-47) % [place] % (Auto) (0-7) % Eos % (Auto) (0-6) % Baso % (Auto) (0-2) % Absolute Neuts (auto) (1.5-7.7) 10^3/ul Absolute Lymphs (auto) (1.0-4.8) 10^3/ul Absolute Monos (auto) (0-0.8) 10^3/ul Absolute Eos (auto) (0-0.6) 10^3/ul Absolute Basos (auto) (0-0.2) 10^3/ul Absolute Nucleated RBC 10^3/ul Nucleated RBC % Sodium (139-145) mmol/L Potassium (3.5-5.0) mmol/L Chloride (101-111) mmol/L Carbon Dioxide (22-32) mmol/L Anion Gap (2-11) mmol/L BUN (6-24) mg/dL Creatinine (0.67-1.17) mg/dL Est GFR ( Amer) (>60) Est GFR (Non-Af Amer) (>60) BUN/Creatinine Ratio (8-20) Glucose (70-100) mg/dL Lactic Acid (0.5-2.0) mmol/L Calcium (8.6-10.3) mg/dL Magnesium (1.9-2.7) mg/dL Total Bilirubin (0.2-1.0) mg/dL AST (13-39) U/L ALT (7-52) U/L Alkaline Phosphatase (34-104) U/L C-Reactive Protein (< 5.00) mg/L B-Natriuretic Peptide 20 ( - 100) pg/mL Total Protein (6.4-8.9) g/dL Albumin (3.2-5.2) g/dL Globulin (2-4) g/dL Albumin/Globulin Ratio (1-3) Lipase (11.0-82.0) U/L Result Diagrams: 08/02/17 13:29 08/02/17 13:29 Lab Statement: Any lab studies that have been ordered have been reviewed, and results considered in the medical decision making process. - CT CT Abd/Pel CT Interpretation Completed By: Radiologist - 1. Fatty infiltration of the liver. 2. Normal appendix documented. No acute pathologic process of the alimentary tract evident. 3. Negative for obstructive uropathy. ED physician reviewed this radiology report. - EKG 1338 Cardiac Rate: NL - 86 bpm EKG Rhythm: Sinus Rhythm - No ST elevations, T wave inversions in lead III and Q waves in aVF Re-Evaluation - Re-Evaluation First Eval Re-Evaluation Time: 17:27 Change: Improved Comment: Discussed results and D/C plan with the pt. Abdominal Pain Fem Course/Dx - Course Assessment/Plan: This patient is a 57-year-old male who presents to the emergency department with a chief complaint of right lower quadrant pain. The patient reports that the pain occasionally with these to the back. He denies any nausea or vomiting. Positive constipation. Blood work without any significant abnormality except for magnesium of 1.6 which the patient was given magnesium by mouth. Abdominopelvic CT impression: Fatty infiltration of the liver. Normal appendix documented. Negative for obstructive uropathy. In the ED course the patient was given Toradol for the pain. I discussed all the findings and test results with the patient. Patient was instructed to return to the emergency room immediately if any of the symptoms return or worsens. Plan of care was discussed with the patient and understands and agrees. All questions were answered at patient satisfaction. There were no further complaints or concerns. Lung exam before discharge: CTA B/L. Good air exchange. No wheezing or crackles heard. CVS: S1 and S2 present. No murmurs appreciated. Patient is alert and oriented x 3. Patient is hemodynamically stable. Patient will be discharged home with follow up PCP in the next 2-3 days - Diagnoses Provider Diagnoses: Right lower quadrant abdominal pain, Hypomagnesemia Discharge - Sign-Out/Discharge Documenting (check all that apply): Discharge/Admit/Transfer - Discharge - Discharge Plan Condition: Stable Disposition: HOME Prescriptions: Naproxen [Naproxen 500 mg tab] 500 mg PO BID #30 tablet Patient Education Materials: Acute Abdominal Pain (ED), Hypomagnesemia (ED) Referrals: Solo Zavala MD [Primary Care Provider] - 3 Days Additional Instructions: RETURN TO ED FOR ANY NEW OR WORSENING SYMPTOMS. The documentation as recorded by the Bonifacio arguello Rebecca accurately reflects the service I personally performed and the decisions made by me, Leo Landa MD.
== END 2017-08-02 17:35 | disposition home or self-care (01) ==
LOC: ED 12:58
DX: R10.31 Right lower quadrant pain (principal); E83.42 Hypomagnesemia; K76.0 Fatty (change of) liver, not elsewhere classified; F17.210 Nicotine dependence, cigarettes, uncomplicated; Z87.442 Personal history of urinary calculi; Z88.8 Allergy status to other drugs, medicaments and biological substances
CPT/HCPCS: 36415; 74177; 80053; 83605; 83690; 83735; 83880; 85025; 86140; 93005; 96374; 99283; J1885; Q9967